=== PATIENT | male | born 1965 | race Caucasian/White ===

== ENCOUNTER 2021-10-11 09:29 | Outpatient (CLI) | payer BC | END 2021-10-11 09:30 | disposition home or self-care (01) | LOC: CSHCT 09:29 | PROVIDERS: ATTEND Neurological Surgery | DX: M50.30 Other cervical disc degeneration, unspecified cervical region (principal); Z98.1 Arthrodesis status; M25.78 Osteophyte, vertebrae | CPT/HCPCS: 72125 ==

== ENCOUNTER 2022-03-25 15:16 | Outpatient (CLI) | payer BC | END 2022-03-25 15:17 | disposition home or self-care (01) | LOC: CSHMRI 15:16 | PROVIDERS: ATTEND Surgery | DX: M54.12 Radiculopathy, cervical region (principal); Z98.890 Other specified postprocedural states; M47.812 Spondylosis without myelopathy or radiculopathy, cervical region | CPT/HCPCS: 72141 ==